=== PATIENT | female | born 1975 | race Two or more races ===

== ENCOUNTER 2018-11-23 12:52 | Outpatient (CLI) | payer OTHER ==
[~2018-11-23 12:52] MED LIST: CONEX TABLET1 EACH PO; KETO10TA2 PO; LUTERA1 TAB; NORFLEX100MG PO; OSTERA TABLET1 EACH; PEPCID20 MG; PROTONIX40 M1; PROVENTIL0.5 ML/2.5; SINGULAIR10 MG; TESSALON PERLE100 M1 PO; ZYRTEC10 M3; ZYRTEC10 M3 PO
== END 2018-11-23 16:20 | disposition home or self-care (01) ==
LOC: MAMO-SONO 12:52
DX: Z12.31 Encounter for screening mammogram for malignant neoplasm of breast (principal); N60.11 Diffuse cystic mastopathy of right breast; N60.12 Diffuse cystic mastopathy of left breast

== ENCOUNTER → 2019-01-17 | Outpatient (CLI) | payer OTHER | END | disposition home or self-care (01) | LOC: NUCLEAR | DX: M81.0 Age-related osteoporosis without current pathological fracture (principal) ==

== ENCOUNTER → 2020-06-12 | Outpatient (CLI) | payer OTHER | END | disposition home or self-care (01) | LOC: RAD 12:08 | PROVIDERS: ATTEND Obstetrics & Gynecology | DX: R05 Cough (principal); N20.0 Calculus of kidney; N39.0 Urinary tract infection, site not specified; Z12.31 Encounter for screening mammogram for malignant neoplasm of breast; N60.11 Diffuse cystic mastopathy of right breast; N60.12 Diffuse cystic mastopathy of left breast ==

== ENCOUNTER 2020-06-20 07:44 | Outpatient (CLI) | payer OTHER | END 2020-06-20 07:46 | disposition home or self-care (01) | LOC: SONOGRAMA 07:44 | PROVIDERS: ATTEND General Practice | DX: R10.2 Pelvic and perineal pain (principal); R10.30 Lower abdominal pain, unspecified ==

== ENCOUNTER 2021-11-30 21:48 | Emergency (ER) | payer OTHER ==
[~2021-11-30] VITALS: Ht 149.9 cm; Wt 61.7 kg
[2021-11-30] MEDS ORDERED: SEROQUEL50 MG PO (22:15)
[2021-11-30] MEDS ORDERED: LITHOBID300 M1 (22:15)
[2021-11-30] MEDS ORDERED: PROZAC40 MG PO (22:15)
[2021-11-30] MEDS ORDERED: ALDACTONE50 MG PO (22:16)
[2021-11-30] MEDS ORDERED: BUSPIRONE HCL5 MG PO (22:16)
[2021-11-30] MEDS ORDERED: BUTALBIT-ACETA1 EACH PO (22:34)
[2021-11-30] MEDS ORDERED: IMITREX50 MG PO (22:34)
== END 2021-12-01 | disposition home or self-care (01) ==
LOC: ER 21:48
DX: G43.909 Migraine, unspecified, not intractable, without status migrainosus (principal)

== ENCOUNTER 2021-12-06 16:17 | Emergency (ER) | payer OTHER ==
[~2021-12-06] VITALS: Ht 149.9 cm; Wt 61.7 kg
[~2021-12-06 16:17] MED LIST changes: +ALDACTONE50 MG PO; +BUSPIRONE HCL5 MG PO; +BUTALBIT-ACETA1 EACH PO; +IMITREX50 MG PO; +LITHOBID300 M1; +PROZAC40 MG PO; +SEROQUEL50 MG PO
== END 2021-12-07 22:20 | disposition designated cancer center or children's hospital (05) ==
LOC: ER 16:17
DX: F32.9 Major depressive disorder, single episode, unspecified (principal); Z20.822 Contact with and (suspected) exposure to COVID-19; Z88.8 Allergy status to other drugs, medicaments and biological substances; Z91.040 Latex allergy status

== ENCOUNTER 2022-03-10 08:16 | Outpatient (CLI) | payer OTHER | END 2022-03-10 08:32 | disposition home or self-care (01) | LOC: RAD 08:16 | PROVIDERS: ATTEND Physical Medicine & Rehabilitation | DX: M76.819 Anterior tibial syndrome, unspecified leg (principal) ==

== ENCOUNTER 2022-04-16 07:56 | Outpatient (CLI) | payer OTHER | END 2022-04-16 08:18 | disposition home or self-care (01) | LOC: SONOGRAMA 07:56 | PROVIDERS: ATTEND Surgery | DX: R31.21 Asymptomatic microscopic hematuria (principal); R10.2 Pelvic and perineal pain ==

== ENCOUNTER 2022-04-22 09:08 | Outpatient (CLI) | payer OTHER | END 2022-04-22 09:10 | disposition home or self-care (01) | LOC: RX STUDY 09:08 | DX: R13.10 Dysphagia, unspecified (principal) ==

== ENCOUNTER 2022-07-16 10:55 | Emergency (ER) | payer OTHER ==
[~2022-07-16] VITALS: Ht 149.9 cm; Wt 64.0 kg
== END 2022-07-16 15:13 | disposition home or self-care (01) ==
LOC: ER 10:55
DX: O03.9 Complete or unspecified spontaneous abortion without complication (principal); U07.1 COVID-19; Z91.040 Latex allergy status; Z88.8 Allergy status to other drugs, medicaments and biological substances

== ENCOUNTER 2023-10-14 18:07 | Emergency (ER) | payer BC ==
[~2023-10-14] VITALS: Ht 149.9 cm; Wt 54.9 kg
[2023-10-14 23:09] LABS: HEMATOCRIT 41.8 % (36.0-45.00); HEMOGLOBIN 13.7 g/dL (12.0-15.00); MEAN CORPUSCULAR HEMOGLOBIN 28.1 pg (27.00-32.0); MEAN CORPUSCULAR HGB CONC 32.7 g/dl (32.0-36.0); PLATELET COUNT 365 K/uL (150-450); RED BLOOD COUNT 4.86 M/uL (4.00-6.00); RED CELL DISTRIBUTION WIDTH 14.3 % (11.5-14.5)
[2023-10-14 23:32] LABS: ERYTHROCYTE SEDIMENTATION RATE 62 mm/hr
[2023-10-14 23:37] LABS: INR 0.98; PARTIAL THROMBOPLASTIN TIME 29.5 SECONDS (22.0-34.0); PROTHROMBIN TIME 10.3 SECONDS (9.0-11.5)
[2023-10-14 23:45] LABS: ALBUMIN 3.9 gm/dL (3.4-5.0); BILIRUBIN TOTAL 0.4 mg/dL (0.3-1.2); C-REACTIVE PROTEIN 2.38 MG/DL (0.00-0.29); CALCIUM 10.1 mg/dL (8.5-10.1); CREATININE SERUM 0.96 mg/dL (0.55-1.02); GFR 62.03; POTASSIUM 4.48 mEq/L (3.5-5.1); TOTAL PROTEIN 7.9 gm/dL (6.4-8.2)
[2023-10-15 00:13] LABS: PH,URINE 5.5 (5.0-8.0); URINE APPEARANCE Clear; URINE BILIRRUBIN Negative (NEGATIVE); URINE BLOOD Moderate; URINE COLOR Yellow; URINE GLUCOSE Negative (NEGATIVE); URINE LEUKOCYTE Negative; URINE NITRATE Positive; URINE PROTEIN Negative (NEGATIVE); URINE UROBILINOGEN 0.2 E.U./dl
[2023-10-15 00:17] LABS: URINE EPITHELIAL CELLS 6.3 uL (0.0-38.8); URINE RBC 24.4 uL (0.0-20.8); URINE WBC 10.3 uL (0.0-23.2)
[2023-10-15 00:21] LABS: URINE BACTERIA > 9821.5 uL (0.0-1933)
== END 2023-10-15 00:33 | disposition home or self-care (01) ==
LOC: ER 18:08
PROVIDERS: General Practice
DX: I77.6 Arteritis, unspecified (principal); Z91.040 Latex allergy status; Z88.8 Allergy status to other drugs, medicaments and biological substances

== ENCOUNTER 2025-05-14 09:16 | Outpatient (CLI) | payer OTHER | END 2025-05-14 09:20 | disposition home or self-care (01) | LOC: MAMO-SONO 09:16 | DX: E04.2 Nontoxic multinodular goiter (principal); M05.29 Rheumatoid vasculitis with rheumatoid arthritis of multiple sites; D35.00 Benign neoplasm of unspecified adrenal gland; F33.9 Major depressive disorder, recurrent, unspecified; J45.998 Other asthma; K22.0 Achalasia of cardia; I73.9 Peripheral vascular disease, unspecified; Z12.31 Encounter for screening mammogram for malignant neoplasm of breast; Z12.39 Encounter for other screening for malignant neoplasm of breast ==

== ENCOUNTER → 2025-06-26 07:56 | Outpatient (CLI) | payer OTHER | END | disposition home or self-care (01) | LOC: NUCLEAR 07:56 | PROVIDERS: ATTEND Internal Medicine Hematology & Oncology | DX: I73.9 Peripheral vascular disease, unspecified (principal) ==

== ENCOUNTER → 2025-06-27 | Outpatient (CLI) | payer OTHER | END | disposition home or self-care (01) | LOC: NUCLEAR 08:00 | PROVIDERS: ATTEND Internal Medicine Hematology & Oncology | DX: I70.213 Atherosclerosis of native arteries of extremities with intermittent claudication, bilateral legs (principal) ==